=== PATIENT | male | born 1985 | race Two or more races ===

== ENCOUNTER 2016-07-20 01:08 | Emergency (ER) | payer SELFPAY ==
[~2016-07-20] VITALS: Ht 180.3 cm; Wt 102.1 kg
[2016-07-20] MEDS ORDERED: NKM (01:18)
[2016-07-20 01:46] VITALS: BP 110/76
[2016-07-20 01:47] VITALS: BP 110/70
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
== END 2016-07-20 01:47 ==
LOC: EMR 01:37
DX: S00.83XA Contusion of other part of head, initial encounter (principal); S00.81XA Abrasion of other part of head, initial encounter; Y04.0XXA Assault by unarmed brawl or fight, initial encounter; Y92.89 Other specified places as the place of occurrence of the external cause
CPT/HCPCS: 99283